=== PATIENT | female | born 1990 | race African-American/Black ===

== ENCOUNTER 2020-12-02 09:39 | Emergency (ER) | payer OTHER ==
[~2020-12-02] VITALS: Ht 167.6 cm; Wt 53.0 kg
--- NOTE | 2020-12-02 09:44 | NUR ---
LE[employer]ER: CALLED PT IN BATHROOM AT THIS TIME
--- NOTE | 2020-12-02 10:17 | NUR ---
PT AMBULATORY TO BR WITH STEADY GAIT. URINE CLEAR, PT DRINKING PEDIALTYE WATER AND NO NAUSEA AT THIS TIME. URINE ORD/COLLECTED/SENT TO LAB PER PROTOCOL.
[2020-12-02 10:28] LABS: MICROSCOPIC NOT IND
[2020-12-02] MEDS ORDERED: ONDANSETRON 2MG/ML, 2ML IVPush ONE (11:00)
[2020-12-02] MEDS ORDERED: SODIUM CHLORIDE FLUSH 10ML SYR IVF ONE (11:00)
[2020-12-02] MEDS ORDERED: SODIUM CHLORIDE 0.9% 1,000ML IVBOLUS ONE (11:00)
--- NOTE | 2020-12-02 11:08 | NUR ---
PT DRINKING FLUIDS, NO NAUSEA AT THIS TIME. PT CHANGED MIND ON WANTING IVF AND MEDICATION. ERP NOTIFIED. AWAITING LAB DRAW. CALL LIGHT WITHIN REACH.
[2020-12-02 11:30] LABS: BASOPHILS % (AUTO) 1 % (0-1); EOSINOPHILS % (AUTO) 1 % (1-7); LYMPHOCYTES % (AUTO) 21 % (22-44); MEAN CORPUSCULAR HEMOGLOBIN 29.3 pg (27.0-34.8); MEAN CORPUSCULAR HGB CONC 34.1 g/dL (32.4-35.8); MEAN PLATELET VOLUME 8.2 fL (7.4-10.4); MONOCYTES % (AUTO) 8 % (2-9); NEUTROPHILS % (AUTO) 70 % (42-75); PLATELET COUNT 269 x10^3/uL (130-400); RED BLOOD COUNT 4.29 x10^6/uL (3.82-5.3); RED CELL DISTRIBUTION WIDTH 14.5 % (9.6-15.2)
[2020-12-02 11:37] LABS: ALANINE AMINOTRANSFERASE 21 U/L (12-78); ALBUMIN 3.8 g/dL (3.4-5.0); ANION GAP 6 mmol/L (5-15); CALCIUM 9.1 mg/dL (8.5-10.1); CHLORIDE 108 mmol/L (98-107); CREATININE 0.74 mg/dL (0.55-1.02)
[2020-12-02 11:41] LABS: ALKALINE PHOSPHATASE 49 U/L (45-117); BILIRUBIN,TOTAL 0.5 mg/dL (0.2-1.0); TOTAL PROTEIN 6.9 g/dL (6.4-8.2)
[2020-12-02 11:49] VITALS: BP 114/57
--- NOTE | 2020-12-02 11:50 | NUR ---
ALL LAB RESULTS BACK, PT FOR RECHECK.
== END 2020-12-02 12:29 | disposition home or self-care (01) ==
LOC: ED 10:42
DX: K52.9 Noninfective gastroenteritis and colitis, unspecified (principal); E86.0 Dehydration; R11.2 Nausea with vomiting, unspecified
CPT/HCPCS: 36415; 80053; 81003; 83605; 84703; 85025; 99283